=== PATIENT | female | born 1980 | race Caucasian/White ===

== ENCOUNTER 2017-07-01 15:19 | Emergency (ER) | payer OTHER ==
[2017-07-01] MEDS ORDERED: SODIUM CHLORIDE 0.9% 1,000 ML IV STA (16:02)
--- NOTE | 2017-07-01 16:27 | ED ---
General Adult HPI - General Chief complaint: Vaginal Bleeding Stated complaint: Vaginal Bleeding/Dizziness Time Seen by Provider: 07/01/17 15:54 Source: patient Mode of arrival: wheelchair Limitations: no limitations - History of Present Illness Initial comments: 36-year-old female patient presents to emergency department today for evaluation of heavy vaginal bleeding with passage of large clots. Patient states that she started her period yesterday, which was a few days later, she states last night she woke up covered in blood. Patient states that today she has been using a super tampon, and an overnight pad and has had to change them hourly due to the heavy bleeding. Patient states that when she removed her tampon large clots come out after it. She states that she did have some mild lower abdominal cramping but that has resolved. Patient states that when she gets up to walk she feels lightheaded, as he, and a little short of breath. Patient denies any syncopal events. Patient denies any chest pain, back pain, fever, chills, dysuria, hematuria, urinary frequency, urinary urgency. Patient denies any chance of , she states that her significant other is unable to have children. Patient states that over the last year her periods have been regular but heavier than usual. This episode is the worst it has been. Patient did phone her [facility] and was told to come here for evaluation. - Related Data Home Medications Medication Instructions Recorded Confirmed No Known Home Medications [No 07/01/17 07/01/17 Known Home Medications] Allergies Allergy/AdvReac Type Severity Reaction Status Date / Time No Known Allergies Allergy Verified 07/01/17 16:16 Review of Systems ROS Statement: Those systems with pertinent positive or pertinent negative responses have been documented in the HPI. ROS Other: All systems not noted in ROS Statement are negative. Past Medical History Past Medical History: No Reported History History of Any Multi-Drug Resistant Organisms: None Reported Past Surgical History: Section Past Psychological History: Anxiety Smoking Status: Never smoker Past Alcohol Use History: None Reported Past Drug Use History: None Reported General Exam Limitations: no limitations General appearance: alert, in no apparent distress Head exam: Present: atraumatic, normocephalic, normal inspection Eye exam: Present: normal appearance, PERRL, EOMI. Absent: scleral icterus, conjunctival injection, periorbital swelling ENT exam: Present: normal exam, normal oropharynx, mucous membranes moist Neck exam: Present: normal inspection. Absent: tenderness, meningismus, lymphadenopathy Respiratory exam: Present: normal lung sounds bilaterally. Absent: respiratory distress, wheezes, rales, rhonchi, stridor Cardiovascular Exam: Present: regular rate, normal rhythm, normal heart sounds. Absent: systolic murmur, diastolic murmur, rubs, gallop, clicks GI/Abdominal exam: Present: soft, normal bowel sounds. Absent: distended, tenderness, guarding, rebound, rigid External exam: Present: normal external exam Speculum exam: Present: vaginal bleeding, other (Moderate vaginal bleeding noted , dark red blood pooling in the vaginal vault, small blood clots noted. Cervical os closed.) By manual exam: Present: normal by manual exam Back exam: Present: normal inspection Neurological exam: Present: alert, oriented X3, CN II-XII intact Psychiatric exam: Present: normal affect, normal mood Skin exam: Present: warm, dry, intact, normal color. Absent: rash Course Vital Signs 07/01/17 07/01/17 15:29 17:25 Temperature 99.4 F 99 F Pulse Rate 114 H 86 Respiratory 18 16 Rate Blood Pressure 110/82 125/62 O2 Sat by Pulse 99 98 Oximetry - Reevaluation(s) Reevaluation #1: 07/01/17 17:15 Patient states she is feeling somewhat better. States she just feels tired at this time. Exam performed and documented. IV fluid bolus infusing. Awaiting results of ultrasound. Medical Decision Making - Medical Decision Making 36 year-old female patient presented to emergency department today for evaluation of heavy vaginal bleeding. Lab work was obtained and did show a mildly decreased hemoglobin. Also transvaginal ultrasound was obtained and did show multiple uterine fibroids. Pelvic exam was performed, other than some dark red blood in the vaginal vault exam was normal. Patient's was tachycardic initially, was given a 1 L fluid bolus, repeat vital signs are within normal limits. It is felt at this time that heavy bleeding is related to the uterine fibroids and patient has been instructed to follow-up with Dr. Cat her OB/ LEAD MACHINIST within the next 1-2 days for recheck. Patient also instructed to return to the emergency department immediately if her symptoms or the bleeding worsens. Return parameters discussed in detail. Patient verbalizes understanding and agrees to this plan. - Lab Data Result diagrams: 07/01/17 16:00 07/01/17 16:00 Lab Results 07/01/17 07/01/17 07/01/17 Range/Units 16:00 16:00 16:00 WBC 5.9 (3.8-10.6) k/uL RBC 4.11 (3.80-5.40) m/uL Hgb 10.6 L (11.4-16.0) gm/dL Hct 32.7 L (34.0-46.0) % MCV 79.4 L (80.0-100.0) fL MCH 25.7 (25.0-35.0) pg MCHC 32.4 (31.0-37.0) g/dL RDW 15.8 H (11.5-15.5) % Plt Count 150 (150-450) k/uL Neutrophils % 70 % Lymphocytes % 21 % Monocytes % 7 % Eosinophils % 1 % Basophils % 0 % Neutrophils # 4.1 (1.3-7.7) k/uL Lymphocytes # 1.3 (1.0-4.8) k/uL Monocytes # 0.4 (0-1.0) k/uL Eosinophils # 0.1 (0-0.7) k/uL Basophils # 0.0 (0-0.2) k/uL Hypochromasia Slight PT (9.0-12.0) sec INR (<1.2) APTT (22.0-30.0) sec Sodium 140 (137-145) mmol/L Potassium 4.0 (3.5-5.1) mmol/L Chloride 106 (98-107) mmol/L Carbon Dioxide 24 (22-30) mmol/L Anion Gap 10 mmol/L BUN 12 (7-17) mg/dL Creatinine 0.83 (0.52-1.04) mg/dL Est GFR (MDRD) Af Amer >60 (>60 ml/min/1.73 sqM) Est GFR (MDRD) Non-Af >60 (>60 ml/min/1.73 sqM) Glucose 99 (74-99) mg/dL Calcium 9.7 (8.4-10.2) mg/dL Total Bilirubin 0.4 (0.2-1.3) mg/dL AST 139 H (14-36) U/L ALT 197 H (9-52) U/L Alkaline Phosphatase 52 (38-126) U/L Total Protein 7.7 (6.3-8.2) g/dL Albumin 4.4 (3.5-5.0) g/dL Urine Color Urine Appearance (Clear) Urine pH (5.0-8.0) Ur Specific [place] (1.001-1.035) Urine Protein (Negative) Urine Glucose (UA) (Negative) Urine Ketones (Negative) Urine Blood (Negative) Urine Nitrite (Negative) Urine Bilirubin (Negative) Urine Urobilinogen (<2.0) mg/dL Ur Leukocyte Esterase (Negative) Urine RBC (0-5) /hpf Urine Bacteria (None) /hpf Urine Mucus (None) /hpf Urine HCG, Qual Not Detected (Not Detectd) 07/01/17 07/01/17 Range/Units 16:00 16:00 WBC (3.8-10.6) k/uL RBC (3.80-5.40) m/uL Hgb (11.4-16.0) gm/dL Hct (34.0-46.0) % MCV (80.0-100.0) fL MCH (25.0-35.0) pg MCHC (31.0-37.0) g/dL RDW (11.5-15.5) % Plt Count (150-450) k/uL Neutrophils % % Lymphocytes % % Monocytes % % Eosinophils % % Basophils % % Neutrophils # (1.3-7.7) k/uL Lymphocytes # (1.0-4.8) k/uL Monocytes # (0-1.0) k/uL Eosinophils # (0-0.7) k/uL Basophils # (0-0.2) k/uL Hypochromasia PT 10.3 (9.0-12.0) sec INR 1.0 (<1.2) APTT 21.8 L (22.0-30.0) sec Sodium (137-145) mmol/L Potassium (3.5-5.1) mmol/L Chloride (98-107) mmol/L Carbon Dioxide (22-30) mmol/L Anion Gap mmol/L BUN (7-17) mg/dL Creatinine (0.52-1.04) mg/dL Est GFR (MDRD) Af Amer (>60 ml/min/1.73 sqM) Est GFR (MDRD) Non-Af (>60 ml/min/1.73 sqM) Glucose (74-99) mg/dL Calcium (8.4-10.2) mg/dL Total Bilirubin (0.2-1.3) mg/dL AST (14-36) U/L ALT (9-52) U/L Alkaline Phosphatase (38-126) U/L Total Protein (6.3-8.2) g/dL Albumin (3.5-5.0) g/dL Urine Color Light Red Urine Appearance Clear (Clear) Urine pH 5.5 (5.0-8.0) Ur Specific [place] 1.022 (1.001-1.035) Urine Protein 1+ H (Negative) Urine Glucose (UA) Negative (Negative) Urine Ketones Trace H (Negative) Urine Blood Large H (Negative) Urine Nitrite Negative (Negative) Urine Bilirubin Negative (Negative) Urine Urobilinogen <2.0 (<2.0) mg/dL Ur Leukocyte Esterase Negative (Negative) Urine RBC >182 H (0-5) /hpf Urine Bacteria Rare H (None) /hpf Urine Mucus Occasional H (None) /hpf Urine HCG, Qual (Not Detectd) - Radiology Data Radiology results: report reviewed, image reviewed Transvaginal ultrasound impression reveals multiple fibroids largest measuring 2.1 x 1.6 x 2.[address] Houser reveals right ovary is not identified due to overlying bowel gas. No adnexal mass or free fluid. Uterine fibroids. No evidence of ovarian torsion. Disposition Clinical Impression: Abnormal uterine bleeding, Uterine fibroid Disposition: HOME SELF-CARE Condition: Stable Instructions: Dysfunctional Uterine Bleeding (ED), Uterine Fibroids (ED) Additional Instructions: Follow-up with [facility] in one to 2 days for recheck. Return for any new, worsening, or concerning symptoms. Referrals: None,Stated [Primary Care Provider] - 1-2 days Medardo Cat DO [Doctor of Osteopathic Medicine] - 1-2 days Time of Disposition: 17:56
[2017-07-01 16:28] LABS: Basophils % (A) 0 %; CH 24.9; CHCM 31.5; Eosinophils # (A) 0.1 k/uL (0-0.7); Eosinophils % (A) 1 %; HCT 32.7 % (34.0-46.0); HDW 2.91; HGB 10.6 gm/dL (11.4-16.0); Hypochromasia Slight; Luc # (Auto) 0.08; Luc % (Auto) 1; Lymphocytes # (A) 1.3 k/uL (1.0-4.8); Lymphocytes % (A) 21 %; MCH 25.7 pg (25.0-35.0); MCHC 32.4 g/dL (31.0-37.0); MCV 79.4 fL (80.0-100.0); Mean Platelet Volume 7.9; Monocytes # (A) 0.4 k/uL (0-1.0); Monocytes % (A) 7 %; Neutrophils # (A) 4.1 k/uL (1.3-7.7); Neutrophils % (A) 70 %; RBC 4.11 m/uL (3.80-5.40); RDW 15.8 % (11.5-15.5); WBC 5.9 k/uL (3.8-10.6); WBC (Perox) 6.06
[2017-07-01 16:36] LABS: Appearance,Urine Clear (Clear); Bacteria,Urine Rare /hpf; Bilirubin,Urine Negative (Negative); Glucose,Urine (UA) Negative (Negative); Ketones,Urine Trace (Negative); Leukocyte Esterase,Urine Negative (Negative); Mucus,Urine Occasional /hpf; Nitrite,Urine Negative (Negative); PH, Urine 5.5 (5.0-8.0); Particle Count 7998; Protein,Urine 1+ (Negative); RBC,Urine >182 /hpf (0-5); Specific Gravity,Urine 1.022 (1.001-1.035); UA Billing (MACRO vs. MICRO) MICRO; Urobilinogen,Urine <2.0 mg/dL (<2.0)
[2017-07-01 16:40] LABS: ALT 197 U/L (9-52); AST 139 U/L (14-36); Alkaline Phosphatase 52 U/L (38-126); Anion Gap 10 mmol/L; Blood Urea Nitrogen 12 mg/dL (7-17); Calcium 9.7 mg/dL (8.4-10.2); Carbon Dioxide 24 mmol/L (22-30); Chloride 106 mmol/L (98-107); Glucose 99 mg/dL (74-99); Non-African American GFR(MDRD) >60 (>60 ml/min/1.73 sqM); Sodium 140 mmol/L (137-145); Total Bilirubin 0.4 mg/dL (0.2-1.3); Total Protein 7.7 g/dL (6.3-8.2)
[2017-07-01 16:42] LABS: Partial Thromboplastin Time 21.8 sec (22.0-30.0); Prothrombin Time 10.3 sec (9.0-12.0)
--- NOTE | 2017-07-01 17:11 | US ---
EXAMINATION TYPE: US transvaginal DATE OF EXAM: 07/01/2017 COMPARISON: NONE CLINICAL HISTORY: Heavy Vaginal Bleeding. TECHNIQUE: Transvaginal (TV) Date of LMP: 06/30/2017 EXAM MEASUREMENTS: Uterus: 9.1 x 4.5 x 2.4 cm Endometrial Stripe: 0.82 cm Left Ovary: 3.3 x 1.7 x 2.6 cm 1. Uterus: Anteverted 2. Endometrium: wnl 3. Right Ovary: Obscured by overlying bowel gas 4. Left Ovary: wnl Spectral, color and waveform doppler imaging shows good arterial and venous flow within the left ov aron; there is no evidence for ovarian torsion. 5. Bilateral Adnexa: wnl 6. Posterior cul-de-sac: wnl Multiple fibroids visualized largest measuring 2.1 x 1.6 x 2.4 cm. IMPRESSION: Right ovary is not identified. No adnexal mass or free fluid. Uterine fibroids. No eviden ce of ovarian torsion.
[2017-07-01 17:26] VITALS: BP 125/62; PULSE 86; RESP 16; TEMP 99
== END 2017-07-01 18:06 | disposition home or self-care (01) ==
LOC: EC 15:19
DX: N93.9 Abnormal uterine and vaginal bleeding, unspecified (principal); D25.9 Leiomyoma of uterus, unspecified; R42 Dizziness and giddiness
CPT/HCPCS: 36415; 76830; 80053; 81001; 81025; 85025; 85610; 85730; 93976; 96360; 96361; 99284

== ENCOUNTER → 2018-07-13 | Outpatient (CLI) | payer OTHER ==
--- NOTE | 2018-07-13 15:20 | US ---
EXAMINATION TYPE: US pelvis complete transvag DATE OF EXAM: 07/13/2018 COMPARISON: US 07/01/2017 CLINICAL HISTORY: N92.1 Menorrhagia with irregular cycle. Long, heavy cycles TECHNIQUE: . Transabdominal sonographic images of the pelvis were acquired. Transvaginal sonographi c images were medically necessary to better assess the following anatomy: Uterus and ovaries Date of LMP: About 1 month ago, cycle still occurring EXAM MEASUREMENTS: Uterus: 10.5 x 4.6 x 5.4 cm Endometrial Stripe: 0.6 cm Right Ovary: 3.5 x 1.9 x 1.7 cm Left Ovary: 2.3 x 1.5 x 2.5 cm 1. Uterus: Anteverted Heterogeneous and bulky. Multiple probable fibroids visualized. Possible ped unculated fibroid visualized near uterine fundus measuring 2.7 x 2.1 x 2.0 cm. Heterogeneous area vis ualized in the lower uterine segment measuring 3.7 x 1.9 x 2.2 cm- possible fibroid vs other 2. Endometrium: wnl 3. Right Ovary: Cystic area visualized measuring 2.2 x 1.5 x 1.6 cm. Small amount of free fluid vis ualized adjacent to the ovary 4. Left Ovary: wnl 5. Bilateral Adnexa: wnl 6. Posterior cul-de-sac: wnl IMPRESSION: 1. Heterogenous vascular region within the lower uterine segment approaching the internal cervical os concerning for endometrial polyp or mass. Direct visualization is recommended. 2. Redemonstration of multiple uterine leiomyomas, the largest measuring 2.7 cm demonstrating interva l growth from the prior exam of 07/01/2017. 3. Dominant right ovarian follicle is likely physiologic and measures up to 2.2 cm.
[2018-07-13 15:36] LABS: HCT 29.6 % (34.0-46.0); HGB 9.5 gm/dL (11.4-16.0); Hypochromasia Slight; MCV 87.6 fL (80.0-100.0); Mean Platelet Volume 7.8; Platelet Count 169 k/uL (150-450); RBC 3.38 m/uL (3.80-5.40); RDW 15.1 % (11.5-15.5); WBC 6.8 k/uL (3.8-10.6)
[2018-07-13 16:04] LABS: T4, Free (Free Thyroxine) 0.92 ng/dL (0.78-2.19)
== END | disposition home or self-care (01) ==
LOC: RADUSWWP 14:24
PROVIDERS: ATTEND Obstetrics & Gynecology
DX: D25.9 Leiomyoma of uterus, unspecified (principal); N93.8 Other specified abnormal uterine and vaginal bleeding
CPT/HCPCS: 36415; 76830; 76856; 82670; 83001; 83002; 84146; 84439; 84443; 84479; 85027

== ENCOUNTER → 2018-07-25 | Outpatient (CLI) | payer OTHER ==
[2018-07-25 11:22] LABS: HCT 32.5 % (34.0-46.0); HGB 10.3 gm/dL (11.4-16.0); Hypochromasia Moderate; MCH 28.7 pg (25.0-35.0); MCHC 31.7 g/dL (31.0-37.0); MCV 90.7 fL (80.0-100.0); Mean Platelet Volume 6.9; Platelet Count 163 k/uL (150-450); Poikilocytosis Slight; RBC 3.58 m/uL (3.80-5.40); RDW 15.4 % (11.5-15.5); WBC 7.2 k/uL (3.8-10.6)
== END | disposition home or self-care (01) ==
LOC: LABWHC1 11:03
PROVIDERS: ATTEND Orthopaedic Surgery
DX: N93.8 Other specified abnormal uterine and vaginal bleeding (principal)
CPT/HCPCS: 36415; 85027

== ENCOUNTER → 2021-11-13 | Outpatient (CLI) | payer BC, OTHER ==
--- NOTE | 2021-11-14 14:10 | MM ---
Reason for exam: screening (asymptomatic). Baseline mammogram. History: Took hormonal contraceptives beginning at age 15. Physical Findings: Nurse did not find any significant physical abnormalities on exam. MG 3D Screening Mammo W/Cad Bilateral CC and MLO view(s) were taken. There are scattered fibroglandular densities. No significant changes when compared with prior studies. ASSESSMENT: Benign, BI-RAD 2 RECOMMENDATION: Routine screening mammogram of both breasts in 1 year.
== END | disposition home or self-care (01) ==
LOC: RADMAMWWP 14:01
PROVIDERS: ATTEND Obstetrics & Gynecology
DX: Z12.31 Encounter for screening mammogram for malignant neoplasm of breast (principal)
CPT/HCPCS: 77063; 77067

== ENCOUNTER → 2023-03-07 | Outpatient (CLI) | payer BC, OTHER ==
--- NOTE | 2023-03-07 22:18 | MR ---
EXAMINATION TYPE: MR shoulder LT wo con DATE OF EXAM: 03/07/2023 7:48 PM COMPARISON: NONE HISTORY: Left shoulder pain for 4 weeks. TECHNIQUE: Multiplanar multispin echo imaging of the left shoulder was performed. FINDINGS: Rotator cuff : There is heterogeneity of the supraspinatus tendon near the humeral insertion with the foci of increased signal felt to reflect small intrasubstance partial tears superimposed on tendinop athy. No evidence for full-thickness tear. The remaining Constituents of the rotator cuff are intact. Bursa: No bursal effusion or thickening is seen. Musculature: There is no muscular tear, contusion, or atrophy. Acromioclavicular joint : There are mild degenerative changes of the acromioclavicular joint. There i s lateral downsloping of the acromion resulting in mild impingement. Osseous structures : There are no fractures or regions of abnormal bone marrow signal intensity. Long biceps tendon : The biceps tendon is normally situated within the bicipital groove. No complete or partial biceps tendon tear is present. Glenohumeral Joint fluid : There is no glenohumeral joint effusion. Cartilage and Bone : No focal hyaline cartilage defects are noted. No Hill-Sachs, reverse Hill-Sachs, or bony Bankart lesions are seen. Labrum : There are no SLAP or soft tissue Bankart lesions. No paralabral cysts are seen. OTHER FINDINGS : none IMPRESSION: 1. There is heterogeneity of the supraspinatus tendon near the humeral insertion with the foci of inc reased signal felt to reflect small intrasubstance partial tears superimposed on tendinopathy.
== END | disposition home or self-care (01) ==
LOC: RADMRIMAIN 19:08
PROVIDERS: ATTEND Orthopaedic Surgery
DX: M75.112 Incomplete rotator cuff tear or rupture of left shoulder, not specified as traumatic (principal); M67.812 Other specified disorders of synovium, left shoulder

== ENCOUNTER → 2023-03-14 | Outpatient (CLI) | payer BC, OTHER ==
[2023-03-14 15:20] LABS: Basophils # (A) 0.02 X 10*3/uL (0.00-0.10); Basophils % (A) 0.4 %; Eosinophils # (A) 0.07 X 10*3/uL (0.04-0.35); Eosinophils % (A) 1.3 %; HCT 41.3 % (37.2-46.3); HGB 13.5 g/dL (12.0-15.0); Immature Grans, Automated 0.4 %; Lymphocytes # (A) 1.39 X 10*3/uL (0.90-5.00); Lymphocytes % (A) 25.8 %; MCH 30.5 pg (27.0-32.0); MCHC 32.7 g/dL (32.0-37.0); MCV 93.4 fL (80.0-97.0); Monocytes # (A) 0.53 X 10*3/uL (0.20-1.00); Monocytes % (A) 9.8 %; NRBC Per 100 WBC 0 /100 WBCS (0.0-0.0); Neutrophils # (A) 3.36 X 10*3/uL (1.80-7.70); Neutrophils % (A) 62.3 %; Platelet Count 136 X 10*3/uL (140-440); RBC 4.42 X 10*6/uL (4.10-5.20); RDW 12.5 % (11.5-14.5); WBC 5.39 X 10*3/uL (4.50-10.00)
[2023-03-14 15:45] LABS: Anion Gap 10.9 mmol/L (10.00-18.00); Carbon Dioxide 23.7 mmol/L (20.0-27.5); Potassium 4.3 mmol/L (3.5-5.5)
== END | disposition home or self-care (01) ==
LOC: LABPAT 10:59
PROVIDERS: ATTEND Orthopaedic Surgery
DX: Z01.812 Encounter for preprocedural laboratory examination (principal); M75.42 Impingement syndrome of left shoulder
CPT/HCPCS: 80051; 85025

== ENCOUNTER 2023-04-10 05:37 | Day surgery (SDC) | payer BC, OTHER ==
[2023-04-08 14:09] VITALS: BMI 37.5
[2023-04-10] MEDS ORDERED: DEXAMETHASONE SOD PHOSPHATE 4 MG/ML 1 ML VIAL IV ONE (06:15)
[2023-04-10] MEDS ORDERED: ONDANSETRON 4 MG/2 ML VIAL IVP ONE (06:15)
[2023-04-10] MEDS ORDERED: HYDROmorphone 0.5 MG/0.5 ML SYRINGE IVP PRN (06:15)
[2023-04-10] MEDS ORDERED: LACTATED RINGERS 1,000 ML IV SCH (06:15)
[2023-04-10] MEDS ORDERED: SCOPOLAMINE 1 MG/72 HR PATCH TRANSDERM ONE (06:36)
[2023-04-10] MEDS ORDERED: LIDOCAINE 1% (10MG/ML) FOR IV START INTRADERMA ONE (06:36)
[2023-04-10] MEDS ORDERED: MIDAZOLAM 2 MG/2 ML VIAL IVP ONE (06:51)
[2023-04-10] MEDS ORDERED: fentaNYL (PF) 50 MCG/ML 2 ML AMP IVP ONE (06:51)
--- NOTE | 2023-04-10 06:51 | HP ---
HISTORY AND PHYSICAL SCHEDULED DATE OF SURGERY: 04/10/2023. HISTORY OF PRESENT ILLNESS: Taty Herrmann is a 42-year-old patient, seen with progressive left shoulder pain. We discussed options for treatment. She elected to proceed with left shoulder arthroscopy. Consent regarding the procedure was obtained. PAST MEDICAL HISTORY: Hyperlipidemia. PAST SURGICAL HISTORY: Ankle surgery, section, and foot surgery. DAILY MEDICATIONS: Crestor. ALLERGIES: None. SOCIAL HISTORY: She denies tobacco use. PHYSICAL EVALUATION OF THE LEFT SHOULDER: Flexion is 150 degrees, abduction is 130 degrees, external rotation is 40 degrees with weakness. Tenderness along the anterolateral acromion and rotator cuff insertion site. Impingement is positive at 90 degrees. Drop-arm sign is positive. Distal neurovascular exam is intact. IMAGING STUDIES: Left shoulder radiographs revealed a type 2 acromion, mild osteoarthritis of the acromioclavicular joint, and cystic changes of the greater tuberosity. A left shoulder MRI revealed a partial rotator cuff tear along with impingement. IMPRESSION: 1. Left shoulder impingement with partial rotator cuff tear. 2. Hyperlipidemia. PLAN: Left shoulder arthroscopy with subacromial decompression, possible arthroscopic rotator cuff repair and debridement. MMODL / IJN: [id number] /
[2023-04-10] MEDS ORDERED: fentaNYL (PF) 50 MCG/ML 2 ML AMP ONE (07:23)
[2023-04-10] MEDS ORDERED: ROPIVACAINE 5 MG/ML 30 ML VIAL ONE (07:23)
[2023-04-10] MEDS ORDERED: SUCCINYLCHOLINE CHLORIDE 200 MG/10 ML VIAL IV ONE (07:23)
[2023-04-10] MEDS ORDERED: LIDOCAINE 2% INJ 20 MG/ML (2 ML VIAL) ONE (07:23)
[2023-04-10] MEDS ORDERED: PROPOFOL 10 MG/ML 20 ML VIAL IV ONE (07:23)
--- NOTE | 2023-04-10 08:37 | P.ANPRN ---
Procedure Note - Anesthesia - Nerve Block Performed Left Interscalene Single Time Out Performed: Yes ([id number]) Date of Procedure: 04/10/23 Procedure Start Time: 06:51 Procedure Stop Time: 06:55 Location of Patient: PreOp Indication: Acute Post-Operative Pain, Requested by Surgeon Specifically requested for management of pain by DrElijah: Frederick Burch Sedation Type: Sedate with meaningful contact maintained Preparation: Sterile Prep Position: Supine (recumbent) Catheter: None Needle Types: Pajunk Needle Gauge: 21 Ultrasound used to visualize needle placement: Yes Ultrasound used to observe medication spread: Yes Injectate: 0.5% Ropivacaine (see comment for volume) (30cc) Blood Aspirated: No Pain Paresthesia on Injection Noted: No Resistance on Injection: Normal Image Stored and Saved: Yes Events: Uneventful and Well Tolerated
--- NOTE | 2023-04-10 08:51 | P.OP ---
Date of Procedure: 04/10/23 Preoperative Diagnosis: Left shoulder impingement Postoperative Diagnosis: 1. Left shoulder rotator cuff tear 2. Left shoulder impingement Procedure(s) Performed: 1. Left shoulder arthroscopic rotator cuff repair 2. Left shoulder arthroscopic subacromial decompression Implants: 1Arthrex 4.75 swivel lock anchor Anesthesia: GETA, regional (Interscalene block) Surgeon: Frederick Burch Estimated Blood Loss (ml): 10 Pathology: none sent Condition: stable Disposition: PACU Indications for Procedure: 42-year-old patient seen with progressive left shoulder pain. After treatment options were discussed, she elected to proceed with arthroscopy. Operative Findings: See description of procedure Description of Procedure: Patient underwent an interscalene block by department of anesthesia. The pat ient was then taken to the operative suite. The patient underwent a general anesthetic by the department of anesthesia. The patient was placed into a lateral position and secured. There was appropriate padding of the bony prominence. Left shoulder was then prepped and draped in normal sterile orthopedic fashion. We placed the extremity in 10 pounds of longitudinal traction. A posterior incision was now made for a posterior working portal site. The trocar and cannula were inserted into the glenohumeral joint. Arthroscopy was initiated. Spinal needle was now inserted anteriorly, to ascertain the anterior working portal site. An incision was now made in that area, a trocar was inserted followed by a probe. The biceps was intact and appeared stable. The labrum was probed and was found to be stable. There was no significant chondromalacia present. At this point instruments removed from the glenohumeral joint. Utilizing the posterior working portal site, the trocar and cannula were inserted into the subacromial space. Arthroscopy initiated. I made an incision 2 fingerbreadths lateral to the acromion. I introduced my trocar followed by my ArthroCare ablator. I now began ablating thick subacromial bursal tissue, which exposed the undersurface of the anterior acromion. There was diminished subacromial space. There was a very prominent anterior acromion. A motorized bur was introduced and a subacromial decompression was performed. I also excised some osteophytes off the inferior aspect of the distal clavicle. The AC joint was visualized and noted to be mildly arthritic. I turned my attention to the rotator cuff tendon. There was some significant partial tearing along the posterior distal supraspinatus. Upon probing the area there was a full- thickness perforation present. I debrided the margins getting down to stable tendon tissue. The tear/defect measured approximately 1.5 cm it was freely mobile over the footprint. I abraded the footprint with a motorized bur. With the assistance of Pardeep ELIZALDE at past 3 everted mattress sutures through good bites of rotator cuff tendon. I punched the hole in the footprint area for insertion of an anchor. All 6 limbs of suture were passed through the eyelet of a Arthrex 4.75 swivel lock anchor. I placed the eyelet into our pre-punch hole. I held in position while Pardeep ELIZALDE tension all 6 limbs of suture and deployed the anchor with good fixation noted. All residual suture limbs were now clipped. We had good compression of the tendon along the entire footprint. Instruments now removed from the portal sites. All portal sites were approximated with nylon suture. Sterile dressings were applied followed by a shoulder sling. Campbell ELIZALDE assisted in all aspects of this case. The patient was awakened, transferred to a bed, and taken to recovery in stable condition.
[2023-04-10 08:54] VITALS: TEMP 97
[2023-04-10] MEDS ORDERED: HYDROcodone/APAP 7.5-325MG 1 EACH TAB PO ONE (10:07)
[2023-04-10] MEDS ORDERED: HYDROcodone/APAP 7.5-325MG 1 EACH TAB ONE (10:07)
[2023-04-10 10:10] VITALS: PULSE 78; RESP 17
[2023-04-10 10:24] VITALS: BP 113/79
== END 2023-04-10 11:19 | disposition home or self-care (01) ==
LOC: OR 05:37
PROVIDERS: ATTEND Orthopaedic Surgery
DX: M75.102 Unspecified rotator cuff tear or rupture of left shoulder, not specified as traumatic (principal); M75.42 Impingement syndrome of left shoulder; G89.18 Other acute postprocedural pain; E78.5 Hyperlipidemia, unspecified; Z98.890 Other specified postprocedural states; Z98.891 History of uterine scar from previous surgery; Z79.899 Other long term (current) drug therapy
CPT/HCPCS: 64415; 81025; 29827; 29826; C1713 ×2; J2250; J0330; J1100; J0690; J2405; J3010; J2795; J2704; J2001

== ENCOUNTER → 2023-12-09 | Outpatient (CLI) | payer BC, OTHER ==
--- NOTE | 2023-12-10 17:15 | MM ---
Reason for Exam: Screening (asymptomatic). Last mammogram was performed 2 year(s) and 1 month(s) ago. Patient History: Menarche at age 13. First Full-Term at age 25. Hormonal Contraceptives, from age 15 until age 33. Risk Values: Yoselin 5 year model risk: 0.8%. NCI Lifetime model risk: 10.8%. Prior Study Comparison: 11/13/2021 Bilateral Screening Mammogram, [facility]. Tissue Density: There are scattered fibroglandular densities. Findings: Analyzed By CAD. Pattern appears symmetrical and stable. No significant interval change is evident No suspicious groups of microcalcifications, spiculated or lobular masses, architectural distortion or other secondary signs of malignancy are mammographically apparent. Overall Assessment: Benign, BI-RAD 2 Management: Screening Mammogram of both breasts in 1 year. A negative mammogram report should not preclude additional follow up of suspicious palpable abnormalities. Patient should continue monthly self breast exam. A clinical breast exam by your physician is recommended on an annual basis and results should be correlated with mammographic findings. Electronically signed and approved by: Allan Retana D.O. Radiologis
== END | disposition home or self-care (01) ==
LOC: RADMAMWWP 11:35
PROVIDERS: ATTEND Obstetrics & Gynecology Obstetrics
DX: Z12.31 Encounter for screening mammogram for malignant neoplasm of breast (principal)
CPT/HCPCS: 77063; 77067

== ENCOUNTER 2024-02-06 10:33 | Emergency (ER) | payer BC, OTHER ==
[2024-02-06 10:39] VITALS: BP 139/87; PULSE 75; RESP 18; TEMP 98.5
--- NOTE | 2024-02-06 11:06 | ED ---
Abdominal Pain HPI - General Chief Complaint: Abdominal Pain Stated Complaint: Abdominal Pain Time Seen by Provider: 02/06/24 10:45 Source: patient, RN notes reviewed Mode of arrival: ambulatory Limitations: no limitations - History of Present Illness Initial Comments: 43-year-old female presents to ED with chief complaint of left lower quadrant and left flank pain. Patient states pain started this morning around 7 AM woke her from sleep. States that the pain is a dull ache that comes and goes and is exacerbated by inspiration. She had a formed bowel movement this morning yet symptoms have persisted. Patient denies hematuria, dysuria, hematochezia, painful urination, pain with bowel movements, dark or tarry stools, and diarrhea. She has a history of kidney stones roughly 10 years ago. Denies history of diverticulitis or diverticulosis. - Related Data Home Medications Medication Instructions Recorded Confirmed Rosuvastatin [Crestor] 10 mg PO DAILY 04/08/23 04/10/23 Previous Rx's Medication Instructions Recorded HYDROcodone/APAP 7.5-325MG [Albers 1 each PO Q6HR PRN #28 tab 04/10/23 7.5] Ondansetron Odt [Zofran Odt] 4 mg PO Q8HR PRN #10 tab 02/06/24 Tamsulosin [Flomax] 0.4 mg PO DAILY #7 cap 02/06/24 Allergies Allergy/AdvReac Type Severity Reaction Status Date / Time No Known Allergies Allergy Verified 04/10/23 06:34 Review of Systems ROS Statement: Those systems with pertinent positive or pertinent negative responses have been documented in the HPI. ROS Other: All systems not noted in ROS Statement are negative. Past Medical History Past Medical History: Hyperlipidemia History of Any Multi-Drug Resistant Organisms: None Reported Past Surgical History: Adenoidectomy, Section, Tonsillectomy, Uterine Ablation Additional Past Surgical History / Comment(s): RT ANKLE RX X 2 Past Anesthesia/Blood Transfusion Reactions: Postoperative Nausea & Vomiting (PONV) Past Psychological History: Anxiety Smoking Status: Former smoker Past Alcohol Use History: Rare Past Drug Use History: None Reported - Past Family History Mother Family Medical History: No Reported History General Exam Limitations: no limitations General appearance: alert, in no apparent distress Head exam: Present: atraumatic, normocephalic, normal inspection Eye exam: Present: normal appearance, PERRL, EOMI. Absent: scleral icterus, conjunctival injection, periorbital swelling ENT exam: Present: normal exam, mucous membranes moist Neck exam: Present: normal inspection. Absent: tenderness, meningismus, ly mphadenopathy Respiratory exam: Present: normal lung sounds bilaterally. Absent: respiratory distress, wheezes, rales, rhonchi, stridor Cardiovascular Exam: Present: regular rate, normal rhythm, normal heart sounds. Absent: systolic murmur, diastolic murmur, rubs, gallop, clicks GI/Abdominal exam: Present: soft, tenderness (LLQ), normal bowel sounds. Absent: distended, guarding, rebound, rigid Extremities exam: Present: normal inspection, full ROM, normal capillary refill. Absent: tenderness, pedal edema, joint swelling, calf tenderness Back exam: Present: normal inspection, full ROM, tenderness (left flank tenderness on palpation, worse with inspiration), CVA tenderness (L), other. Absent: CVA tenderness (R) Neurological exam: Present: alert, oriented X3, CN II-XII intact Psychiatric exam: Present: normal affect, normal mood Skin exam: Present: warm, dry, intact, normal color. Absent: rash Course Vital Signs 02/06/24 10:35 Temperature 98.5 F Pulse Rate 75 Respiratory 18 Rate Blood Pressure 139/87 O2 Sat by Pulse 97 Oximetry Medical Decision Making - Medical Decision Making Was pt. sent in by a medical professional or institution (, PA, OPTICAL ASSISTANT, urgent care, hospital, or halfway...) When possible be specific @ -No Did you speak to anyone other than the patient for history (EMS, parent, family, police, friend...)? What history was obtained from this source @ -No Did you review nursing and triage notes (agree or disagree)? Why? @ -I reviewed and agree with nursing and triage notes Were old charts reviewed (outside hosp., previous admission, EMS record, old EKG, old radiological studies, urgent care reports/EKG's, halfway records)? Report findings @ -No old charts were reviewed Differential Diagnosis (chest pain, altered mental status, abdominal pain women, abdominal pain men, vaginal bleeding, weakness, fever, dyspnea, syncope, headac he, dizziness, GI bleed, back pain, seizure, CVA, palpatations, mental health, musculoskeletal)? @ -Differential Abdominal Pain Women: Appendicitis, Cholecystitis, diverticulosis, ischemic bowel, pancreatitis, hepatitis, UTI, gastroenteritis, AAA, incarcerated hernia, bowel obstruction, constipation, inflammatory bowel, hepatitis, peptic ulcer disease, splenic infarction, perforated viscus, vulvitis, ovarian torsion, PID, kidney stone, placenta abruption, this is not meant to be an all-inclusive list ] EKG interpreted by me (3pts min.). @ -None X-rays interpreted by me (1pt min.). @ -None done CT interpreted by me (1pt min.). @ -CT abdomen pelvis without contrast revealed 3 mm nodule in the proximal left ureter with mild left-sided hydronephrosis. Cirrhosis with hepatosplenomegaly.] U/S interpreted by me (1pt. min.). @ -None done What testing was considered but not performed or refused? (CT, X-rays, U/S, labs)? Why? @ -None What meds were considered but not given or refused? Why? @ -None Did you discuss the management of the patient with other professionals (professionals i.e. , PA, OPTICAL ASSISTANT, lab, RT, psych nurse, social sciences department chair, guidance consultant, teacher, sailing officer, supportive employment case manager)? Give summary @ -No Was smoking cessation discussed for >3mins.? @ -No Was critical care preformed (if so, how long)? @ -No Were there social determinants of health that impacted care today? How? (Homelessness, low income, unemployed, alcoholism, drug addiction, transportation, low edu. Level, literacy, decrease access to med. care, [facility], rehab)? @ -No Was there de-escalation of care discussed even if they declined (Discuss DNR or withdrawal of care, Hospice)? DNR status @ -No What co-morbidities impacted this encounter? (DM, HTN, Smoking, COPD, CAD, Cancer, CVA, ARF, Chemo, Hep., AIDS, mental health diagnosis, sleep apnea, morbid obesity)? @ -None Was patient admitted / discharged? Hospital course, mention meds given and route, prescriptions, significant lab abnormalities, going to OR and other pertinent info. @ -Discharge. 43-year-old female presents to the emergency department with chief complaint of left lower quadrant and left flank pain. CT abdomen pelvis without contrast revealed 3 mm nodule in the proximal left ureter with mild left-sided hydronephrosis. Cirrhosis with hepatosplenomegaly. UA remarkable for blood. Patient's pain has subsided since administration of Toradol. Patient's vitals are stable and is amenable to discharge. Outpatient prescription of Flomax and Zofran to aid in passage of stone. With patient incidental findings of cirrhosis and hepatosplenomegaly. Patient to follow-up outpatient with primary care provider for further evaluation and treatment Undiagnosed new problem with uncertain prognosis? @ -No Drug Therapy requiring intensive monitoring for toxicity (Heparin, Nitro, Insulin, Cardizem)? @ -No Were any procedures done? @ -No Diagnosis/symptom? @ -Nephrolithiasis Acute, or Chronic, or Acute on Chronic? @ -Acute Uncomplicated (without systemic symptoms) or Complicated (systemic symptoms)? @ -Uncomplicated Side effects of treatment? @ -No Exacerbation, Progression, or Severe Exacerbation? @ -No Poses a threat to life or bodily function? How? (Chest pain, [place], [place], pneumonia, PE, COPD, DKA, ARF, appy, cholecystitis, CVA, Diverticulitis, Homicidal, Suicidal, threat to staff... and all critical care pts) @ -No - Lab Data Result diagrams: 02/06/24 11:24 02/06/24 11:24 Lab Results 02/06/24 02/06/24 02/06/24 Range/Units 11:24 11:24 11:24 WBC 7.6 (3.8-10.6) k/uL RBC 4.45 (3.80-5.40) m/uL Hgb 14.1 (11.4-16.0) gm/dL Hct 42.1 (34.0-46.0) % MCV 94.5 (80.0-100.0) fL MCH 31.7 (25.0-35.0) pg MCHC 33.6 (31.0-37.0) g/dL RDW 12.8 (11.5-15.5) % Plt Count 112 L (150-450) k/uL MPV 7.7 Neutrophils % 78 % Lymphocytes % 15 % Monocytes % 4 % Eosinophils % 1 % Basophils % 0 % Neutrophils # 5.9 (1.3-7.7) k/uL Lymphocytes # 1.1 (1.0-4.8) k/uL Monocytes # 0.3 (0-1.0) k/uL Eosinophils # 0.1 (0-0.7) k/uL Basophils # 0.0 (0-0.2) k/uL Sodium 138 (137-145) mmol/L Potassium 4.3 (3.5-5.1) mmol/L Chloride 107 (98-107) mmol/L Carbon Dioxide 22 (22-30) mmol/L Anion Gap 9 mmol/L BUN 11 (7-17) mg/dL Creatinine 0.69 (0.52-1.04) mg/dL Est GFR (CKD-EPI)AfAm >90 (>60 ml/min/1.73 sqM) Est GFR (CKD-EPI)NonAf >90 (>60 ml/min/1.73 sqM) Glucose 105 H (74-99) mg/dL Plasma Lactic Acid Noe 1.1 (0.7-2.0) mmol/L Calcium 9.6 (8.4-10.2) mg/dL Total Bilirubin 0.9 (0.2-1.3) mg/dL AST 103 H (14-36) U/L ALT 105 H (4-34) U/L Alkaline Phosphatase 60 (38-126) U/L Total Protein 8.0 (6.3-8.2) g/dL Albumin 4.7 (3.5-5.0) g/dL Lipase 142 (23-300) U/L Urine Color Urine Appearance (Clear) Urine pH (5.0-8.0) Ur Specific [place] (1.001-1.035) Urine Protein (Negative) Urine Glucose (UA) (Negative) Urine Ketones (Negative) Urine Blood (Negative) Urine Nitrite (Negative) Urine Bilirubin (Negative) Urine Urobilinogen (<2.0) mg/dL Ur Leukocyte Esterase (Negative) Urine RBC (0-5) /hpf Urine WBC (0-5) /hpf Ur Squamous Epith Cells (0-4) /hpf Urine Bacteria (None) /hpf Hyaline Casts (0-2) /lpf Urine Mucus (None) /hpf 02/06/24 Range/Units 11:24 WBC (3.8-10.6) k/uL RBC (3.80-5.40) m/uL Hgb (11.4-16.0) gm/dL Hct (34.0-46.0) % MCV (80.0-100.0) fL MCH (25.0-35.0) pg MCHC (31.0-37.0) g/dL RDW (11.5-15.5) % Plt Count (150-450) k/uL MPV Neutrophils % % Lymphocytes % % Monocytes % % Eosinophils % % Basophils % % Neutrophils # (1.3-7.7) k/uL Lymphocytes # (1.0-4.8) k/uL Monocytes # (0-1.0) k/uL Eosinophils # (0-0.7) k/uL Basophils # (0-0.2) k/uL Sodium (137-145) mmol/L Potassium (3.5-5.1) mmol/L Chloride (98-107) mmol/L Carbon Dioxide (22-30) mmol/L Anion Gap mmol/L BUN (7-17) mg/dL Creatinine (0.52-1.04) mg/dL Est GFR (CKD-EPI)AfAm (>60 ml/min/1.73 sqM) Est GFR (CKD-EPI)NonAf (>60 ml/min/1.73 sqM) Glucose (74-99) mg/dL Plasma Lactic Acid Noe (0.7-2.0) mmol/L Calcium (8.4-10.2) mg/dL Total Bilirubin (0.2-1.3) mg/dL AST (14-36) U/L ALT (4-34) U/L Alkaline Phosphatase (38-126) U/L Total Protein (6.3-8.2) g/dL Albumin (3.5-5.0) g/dL Lipase (23-300) U/L Urine Color Light Yellow Urine Appearance Clear (Clear) Urine pH 6.0 (5.0-8.0) Ur Specific [place] 1.011 (1.001-1.035) Urine Protein Trace H (Negative) Urine Glucose (UA) Negative (Negative) Urine Ketones Negative (Negative) Urine Blood Large H (Negative) Urine Nitrite Negative (Negative) Urine Bilirubin Negative (Negative) Urine Urobilinogen <2.0 (<2.0) mg/dL Ur Leukocyte Esterase Negative (Negative) Urine RBC 133 H (0-5) /hpf Urine WBC 2 (0-5) /hpf Ur Squamous Epith Cells <1 (0-4) /hpf Urine Bacteria Rare H (None) /hpf Hyaline Casts 1 (0-2) /lpf Urine Mucus Rare H (None) /hpf Disposition Clinical Impression: Nephrolithiasis Narrative: Please return to the Emergency Department if symptoms worsen or any other concerns. Discussed with patient follow-up outpatient with primary care provider for further evaluation of incidental finding of cirrhosis and hepa tosplenomegaly. Disposition: HOME SELF-CARE Condition: Good Instructions (If sedation given, give patient instructions): Kidney Stones (ED) Prescriptions: Tamsulosin [Flomax] 0.4 mg PO DAILY #7 cap Ondansetron Odt [Zofran Odt] 4 mg PO Q8HR PRN #10 tab PRN Reason: Nausea Is patient prescribed a controlled substance at d/c from ED?: No Referrals: Luis Eduardo Jurado MD [REFERRING] - 1-2 days
--- NOTE | 2024-02-06 11:43 | CT ---
EXAMINATION: CT ABDOMEN AND PELVIS WITHOUT IV CONTRAST DATE OF EXAMINATION: 02/06/2024. COMPARISON: None available. INDICATION: Left flank pain. PROCEDURE: Axial CT of the abdomen and pelvis was performed with sagittal and coronal reformatted i mages without contrast enhancement. The exam is limited because some types of pathology may not be ad equately demonstrated due to lack of contrast enhancement. CT dose lowering techniques were used, to include: automated exposure control, adjustment for patient size, and/or use of iterative reconstruct ion. FINDINGS: LOWER CHEST : The visualized lung bases are clear. There are no pleural or pericardial effusions. ABDOMEN: Liver and Biliary system: There is a diffuse nodular contour to the liver which is compatible with c irrhosis. No focal liver lesions are seen on this limited noncontrast examination. The liver is enlar ged measuring 22.6 cm in craniocaudal dimension. Adrenal glands: Normal. Kidneys and ureters: There is a 3 mm stone in the proximal left ureter with mild left-sided hydronep hrosis. The right kidney and ureter appear unremarkable. Spleen: The spleen is mildly enlarged measuring 13.2 cm in AP dimension. Pancreas: Normal. Gallbladder: Normal. Lymph nodes, Peritoneum and mesentery: There is no mesenteric or retroperitoneal lymphadenopathy. Gastrointestinal tract: There are no dilated loops of bowel or free intraperitoneal air. . The appe ndix is normal. Aorta/IVC: No aortic aneurysm.. IVC normal. Abdominal wall: Normal. PELVIS: Fluid: There is no free fluid in the pelvis. Lymph Nodes: There is no pelvic or inguinal lymphadenopathy.. Urinary bladder: Normal. BONES: There are no osseous destructive lesions.. ADDITIONAL SIGNIFICANT FINDINGS: None. IMPRESSION: 1. 3 mm nodule in the proximal left ureter with mild left-sided hydronephrosis. 2. Cirrhosis with hepatosplenomegaly. 3. No additional acute findings seen within the abdomen or pelvis.
[2024-02-06 11:46] LABS: Basophils % (A) 0 %; Eosinophils # (A) 0.1 k/uL (0-0.7); Eosinophils % (A) 1 %; HCT 42.1 % (34.0-46.0); HGB 14.1 gm/dL (11.4-16.0); Lymphocytes # (A) 1.1 k/uL (1.0-4.8); Lymphocytes % (A) 15 %; MCH 31.7 pg (25.0-35.0); MCHC 33.6 g/dL (31.0-37.0); MCV 94.5 fL (80.0-100.0); Mean Platelet Volume 7.7; Monocytes # (A) 0.3 k/uL (0-1.0); Monocytes % (A) 4 %; Neutrophils # (A) 5.9 k/uL (1.3-7.7); Neutrophils % (A) 78 %; Platelet Count 112 k/uL (150-450); RBC 4.45 m/uL (3.80-5.40); RDW 12.8 % (11.5-15.5); WBC 7.6 k/uL (3.8-10.6)
[2024-02-06 11:51] LABS: Appearance,Urine Clear (Clear); Bacteria,Urine Rare /hpf; Bilirubin,Urine Negative (Negative); Blood,Urine Large (Negative); Color,Urine Light Yellow; Glucose,Urine (UA) Negative (Negative); Hyaline Casts,Urine 1 /lpf (0-2); Ketones,Urine Negative (Negative); Leukocyte Esterase,Urine Negative (Negative); Mucus,Urine Rare /hpf; Nitrite,Urine Negative (Negative); Protein,Urine Trace (Negative); RBC,Urine 133 /hpf (0-5); Specific Gravity,Urine 1.011 (1.001-1.035); Squamous Epithelial Cell,Urine <1 /hpf (0-4); Urobilinogen,Urine <2.0 mg/dL (<2.0); WBC,Urine 2 /hpf (0-5)
[2024-02-06 11:54] LABS: Potassium 4.3 mmol/L (3.5-5.1)
[2024-02-06 11:55] LABS: ALT 105 U/L (4-34); AST 103 U/L (14-36); African American GFR (CKD) >90 (>60 ml/min/1.73 sqM); Albumin 4.7 g/dL (3.5-5.0); Alkaline Phosphatase 60 U/L (38-126); Anion Gap 9 mmol/L; Blood Urea Nitrogen 11 mg/dL (7-17); Calcium 9.6 mg/dL (8.4-10.2); Carbon Dioxide 22 mmol/L (22-30); Chloride 107 mmol/L (98-107); Glucose 105 mg/dL (74-99); Lipase 142 U/L (23-300); Non-African American GFR(CKD) >90 (>60 ml/min/1.73 sqM); Sodium 138 mmol/L (137-145); Total Bilirubin 0.9 mg/dL (0.2-1.3)
[2024-02-06] MEDS: KETOROLAC 15 MG/ML 1 ML VIAL IM STA (12:30)
[2024-02-06] MEDS: ACET/COD 300 MG/30 MG STARTER PACK 6 TAB BTL PO STA (12:33)
== END 2024-02-06 12:46 | disposition home or self-care (01) ==
LOC: EC 10:33
DX: K74.60 Unspecified cirrhosis of liver (principal); N20.0 Calculus of kidney; E78.5 Hyperlipidemia, unspecified; Z87.891 Personal history of nicotine dependence; Z86.59 Personal history of other mental and behavioral disorders; Z79.899 Other long term (current) drug therapy
CPT/HCPCS: 36415; 80053; 83605; 83690; 85025; 81001; 74176; 99284; 96372; J1885

== ENCOUNTER → 2024-04-06 | Outpatient (CLI) | payer BC, OTHER ==
[2024-04-06 19:11] LABS: Basophils # (A) 0.01 X 10*3/uL (0.00-0.10); Basophils % (A) 0.2 %; Eosinophils # (A) 0.07 X 10*3/uL (0.04-0.35); Eosinophils % (A) 1.3 %; HCT 43.4 % (37.2-46.3); HGB 14.2 g/dL (12.0-15.0); Lymphocytes # (A) 1.56 X 10*3/uL (0.90-5.00); Lymphocytes % (A) 28.1 %; MCH 31.1 pg (27.0-32.0); MCHC 32.7 g/dL (32.0-37.0); MCV 95.2 FL (80.0-97.0); Mean Platelet Volume 11.1 FL (9.5-12.2); Monocytes # (A) 0.43 X 10*3/uL (0.20-1.00); Monocytes % (A) 7.7 %; NRBC Per 100 WBC 0 X 10*3/uL (0.00-0.01); Neutrophils # (A) 3.48 X 10*3/uL (1.80-7.70); Neutrophils % (A) 62.5 %; Platelet Count 140 X 10*3/uL (140-440); RBC 4.56 X 10*6/uL (4.10-5.20); RDW 12.9 % (11.5-14.5); WBC 5.56 X 10*3/uL (4.50-10.00)
[2024-04-06 19:15] LABS: % Iron Saturation 21.76 (12.00-45.00); ALT 57 U/L (8-44); AST 50 U/L (13-35); Albumin 4.8 g/dL (3.8-4.9); Albumin/Globulin Ratio 1.71 Ratio (1.60-3.17); Alkaline Phosphatase 54 U/L (41-126); Blood Urea Nitrogen 9.8 mg/dL (9.0-27.0); Calcium 10.3 mg/dL (8.7-10.3); Carbon Dioxide 22.3 mmol/L (21.6-31.8); Chloride 105 mmol/L (96-109); Globulin 2.8 g/dL (1.6-3.3); Glucose 95 mg/dL (70-110); Iron 74 UG/DL (50-170); Potassium 4.4 mmol/L (3.5-5.5); Sodium 139 mmol/L (135-145); Total Bilirubin 0.6 mg/dL (0.3-1.2); Total Iron Binding Capacity 340 UG/DL (228-460); Total Protein 7.6 g/dL (6.2-8.2)
[2024-04-06 19:59] LABS: Hepatitis B Surface AB- Quant 52.2 mIU/mL
[2024-04-06 22:13] LABS: Hepatitis B Surface Antigen Nonreactive (Nonreactive); Hepatitis C IgG Antibody Nonreactive (Nonreactive)
[2024-04-06 22:38] LABS: Ceruloplasmin 21.3 mg/dL (20.0-60.0)
[2024-04-07 12:57] LABS: Liver/Kidney Microsome Antibod 3.6 UNITS (<=20)
== END | disposition home or self-care (01) ==
LOC: LABWHC1 12:08
PROVIDERS: ATTEND Internal Medicine Gastroenterology
DX: K75.81 Nonalcoholic steatohepatitis (NASH) (principal)
CPT/HCPCS: 36415; 80053; 82103; 82390; 83516; 83540; 83550; 85025; 86038; 86376; 86706; 86803; 87340

== ENCOUNTER → 2024-10-27 | Outpatient (CLI) | payer BC, OTHER ==
[2024-10-27 18:56] LABS: Basophils # (A) 0.02 X 10*3/uL (0.00-0.10); Basophils % (A) 0.2 %; Eosinophils # (A) 0.06 X 10*3/uL (0.04-0.35); Eosinophils % (A) 0.6 %; HCT 43.1 % (37.2-46.3); HGB 14.5 g/dL (12.0-15.0); Lymphocytes # (A) 2.55 X 10*3/uL (0.90-5.00); Lymphocytes % (A) 26.6 %; MCH 31.2 pg (27.0-32.0); MCHC 33.6 g/dL (32.0-37.0); MCV 92.7 FL (80.0-97.0); Mean Platelet Volume 10.6 FL (9.5-12.2); Monocytes # (A) 0.61 X 10*3/uL (0.20-1.00); Monocytes % (A) 6.4 %; NRBC Per 100 WBC 0 X 10*3/uL (0.00-0.01); Neutrophils % (A) 65.8 %; Platelet Count 154 X 10*3/uL (140-440); RBC 4.65 X 10*6/uL (4.10-5.20); RDW 13.1 % (11.5-14.5); WBC 9.58 X 10*3/uL (4.50-10.00)
[2024-10-27 19:14] LABS: BUN/Creat Ratio 16.38 Ratio (12.00-20.00); Blood Urea Nitrogen 13.1 mg/dL (9.0-27.0); Carbon Dioxide 21.9 mmol/L (21.6-31.8); Chloride 106 mmol/L (96-109); Glucose 102 mg/dL (70-110); Potassium 4.1 mmol/L (3.5-5.5); Sodium 138 mmol/L (135-145)
[2024-10-27 19:15] LABS: ALT 14 U/L (8-44); AST 18 U/L (13-35); Alkaline Phosphatase 51 U/L (41-126); Calcium 9.8 mg/dL (8.7-10.3); Total Bilirubin 0.5 mg/dL (0.3-1.2)
== END | disposition home or self-care (01) ==
LOC: LABWHC1 13:57
PROVIDERS: ATTEND Internal Medicine Gastroenterology
DX: K75.81 Nonalcoholic steatohepatitis (NASH) (principal)
CPT/HCPCS: 36415; 80053; 82105; 85025

== ENCOUNTER 2024-11-23 15:34 | Emergency (ER) | payer BC, OTHER ==
[2024-11-23 15:51] VITALS: TEMP 98.6
[2024-11-23 16:08] LABS: Basophils % (A) 0 %; Eosinophils # (A) 0.1 k/uL (0-0.7); Eosinophils % (A) 1 %; HCT 43.8 % (34.0-46.0); HGB 14.2 gm/dL (11.4-16.0); Lymphocytes # (A) 1.2 k/uL (1.0-4.8); Lymphocytes % (A) 11 %; MCH 30.6 pg (25.0-35.0); MCHC 32.5 g/dL (31.0-37.0); MCV 94.3 fL (80.0-100.0); Mean Platelet Volume 7.2; Monocytes # (A) 0.4 k/uL (0-1.0); Monocytes % (A) 4 %; Neutrophils # (A) 9.2 k/uL (1.3-7.7); Neutrophils % (A) 84 %; Platelet Count 133 k/uL (150-450); RBC 4.64 m/uL (3.80-5.40); RDW 12.7 % (11.5-15.5)
[2024-11-23 16:13] LABS: Prothrombin Time 11.4 sec (10.0-12.5)
[2024-11-23 16:21] LABS: ALT 14 U/L (4-34); AST 21 U/L (14-36); African American GFR (CKD) >90 (>60 ml/min/1.73 sqM); Albumin 3.4 g/dL (3.5-5.0); Alkaline Phosphatase 38 U/L (38-126); Anion Gap 6 mmol/L; Blood Urea Nitrogen 14 mg/dL (7-17); Calcium 9.4 mg/dL (8.4-10.2); Carbon Dioxide 20 mmol/L (22-30); Chloride 110 mmol/L (98-107); Glucose 88 mg/dL (74-99); Non-African American GFR(CKD) >90 (>60 ml/min/1.73 sqM); Potassium 4.2 mmol/L (3.5-5.1); Sodium 136 mmol/L (137-145); Total Bilirubin 0.4 mg/dL (0.2-1.3); Total Protein 5.7 g/dL (6.3-8.2)
--- NOTE | 2024-11-23 16:38 | XR ---
EXAMINATION TYPE: XR chest 2V DATE OF EXAM: 11/23/2024 4:34 PM COMPARISON: None. CLINICAL INDICATION: Female, 44 years old with history of pain; [facility] TECHNIQUE: XR chest 2V Frontal and lateral views of the chest. FINDINGS: Lungs/Pleura: There is no evidence of pleural effusion, focal consolidation, or pneumothorax. Pulmonary vascularity: Unremarkable. Heart/mediastinum: Cardiomediastinal silhouette is unremarkable. Musculoskeletal: No acute osseous pathology. Other findings: None IMPRESSION: No acute cardiopulmonary disease/process. [facility], , 11/23/2024 4:36 PM
--- NOTE | 2024-11-23 18:15 | ED ---
Dizziness HPI - General Chief Complaint: Dizziness Stated Complaint: elevated heart rate Time Seen by Provider: 11/23/24 17:30 Source: patient, family, RN notes reviewed Mode of arrival: ambulatory Limitations: no limitations - History of Present Illness Initial Comments: 44-year-old female presenting to the ER with chief complaint of lightheadedness. States she was in the shower approximately 2 hours ago when she began to feel lightheaded, nauseous, bilateral upper extremity and numbness and vibrating. Also reports a dull chest tightness with associated shortness of breath. States this episode lasted about 20 minutes. states symptoms have mostly resolved however continues to experience a very dull chest tightness. Denies any significant past medical history. Does not take any medications. States she donated plasma earlier today. Denies issues from needle site - Related Data Home Medications Medication Instructions Recorded Confirmed Rosuvastatin [Crestor] 10 mg PO DAILY 04/08/23 04/10/23 Previous Rx's Medication Instructions Recorded HYDROcodone/APAP 7.5-325MG [[place] 1 each PO Q6HR PRN #28 tab 04/10/23 7.5] Ondansetron Odt [Zofran Odt] 4 mg PO Q8HR PRN #10 tab 02/06/24 Tamsulosin [Flomax] 0.4 mg PO DAILY #7 cap 02/06/24 Allergies Allergy/AdvReac Type Severity Reaction Status Date / Time No Known Allergies Allergy Verified 11/23/24 15:51 Review of Systems ROS Statement: Those systems with pertinent positive or pertinent negative responses have been documented in the HPI. ROS Other: All systems not noted in ROS Statement are negative. Past Medical History Past Medical History: Hyperlipidemia History of Any Multi-Drug Resistant Organisms: None Reported Past Surgical History: Adenoidectomy, Section, Tonsillectomy, Uterine Ablation Additional Past Surgical History / Comment(s): RT ANKLE RX X 2 Past Anesthesia/Blood Transfusion Reactions: Postoperative Nausea & Vomiting (PONV) Past Psychological History: Anxiety Smoking Status: Former smoker Past Alcohol Use History: Rare Past Drug Use History: None Reported - Past Family History Mother Family Medical History: No Reported History General Exam Limitations: no limitations General appearance: alert, in no apparent distress Head exam: Present: atraumatic, normocephalic, normal inspection Eye exam: Present: normal appearance, PERRL, EOMI. Absent: scleral icterus, conjunctival injection, periorbital swelling Respiratory exam: Present: normal lung sounds bilaterally. Absent: respiratory distress, wheezes, rales, rhonchi, stridor Cardiovascular Exam: Present: regular rate, normal rhythm, normal heart sounds. Absent: systolic murmur, diastolic murmur, rubs, gallop, clicks GI/Abdominal exam: Present: soft, normal bowel sounds. Absent: distended, tenderness, guarding, rebound, rigid Neurological exam: Present: alert, oriented X3, CN II-XII intact Psychiatric exam: Present: normal affect, normal mood Skin exam: Present: warm, dry, intact, normal color. 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 Ventricular rate 100 bpm, AK interval 123, QRS duration 101, QT/QTc 345/402) Medical Decision Making - Medical Decision Making Was pt. sent in by a medical professional or institution (, PA, MOTO MIX OPERATOR, urgent care, hospital, or [facility]...) When possible be specific @ -No Did you speak to anyone other than the patient for history (EMS, parent, family, police, friend...)? What history was obtained from this source @ -No Did you review nursing and triage notes (agree or disagree)? Why? @ -I reviewed and agree with nursing and triage notes Were old charts reviewed (outside hosp., previous admission, EMS record, old EKG, old radiological studies, urgent care reports/EKG's, [facility] records)? Report findings @ -No old charts were reviewed Differential Diagnosis (chest pain, altered mental status, abdominal pain women, abdominal pain men, vaginal bleeding, weakness, fever, dyspnea, syncope, headache, dizziness, GI bleed, back pain, seizure, CVA, palpatations, mental health, musculoskeletal)? @ -Differential Dizziness: Benign paroxysmal positional Vertigo, Meniere's disease, otitis media, acoustic neuroma, vertebrobasilar insufficiency, cerebellar stroke, encephalitis, hypovolemic, arrhythmia, coronary artery syndrome, anemia, this is not meant to be an all-inclusive list EKG interpreted by me (3pts min.). @ -As above X-rays interpreted by me (1pt min.). @ -Chest x-ray reveals no acute process CT interpreted by me (1pt min.). @ -None done U/S interpreted by me (1pt. min.). @ -None done What testing was considered but not performed or refused? (CT, X-rays, U/S, labs)? Why? @ -None What meds were considered but not given or refused? Why? @ -None Did you discuss the management of the patient with other professionals (professionals i.e. DrElijah, PA, MOTO MIX OPERATOR, lab, RT, psych nurse, social media marketing manager, caser in, teacher, international first officer, case management specialist)? Give summary @ -No Was smoking cessation discussed for >3mins.? @ -No Was critical care preformed (if so, how long)? @ -No Were there social determinants of health that impacted care today? How? (Homelessness, low income, unemployed, alcoholism, drug addiction, transportation, low edu. Level, literacy, decrease access to med. care, assisted, rehab)? @ -No Was there de-escalation of care discussed even if they declined (Discuss DNR or withdrawal of care, Hospice)? DNR status @ -No What co-morbidities impacted this encounter? (DM, HTN, Smoking, COPD, CAD, Cancer, CVA, ARF, Chemo, Hep., AIDS, mental health diagnosis, sleep apnea, morbid obesity)? @ -None Was patient admitted / discharged? Hospital course, mention meds given and route, prescriptions, significant lab abnormalities, going to OR and other pertinent info. @ -Discharge. This is a 44-year-old female with no significant past medical history presenting for episode of lightheadedness prior to arrival. Patient is currently asymptomatic. Vital signs are within acceptable limits. EKG reveals sinus tachycardia at [address] changes. Chest x-ray reveals no acute process. Lab work including CBC, CMP, coags, D-dimer, troponin unremarkable. Discussed negative results with patient. There is no sign of emergent etiology causing symptoms. No cardiac risk factors. Appropriate return precautions and follow-up care discussed with patient. Case was discussed with my ED attending Dr. Santillan. Undiagnosed new problem with uncertain prognosis? @ -No Drug Therapy requiring intensive monitoring for toxicity (Heparin, Nitro, Insulin, Cardizem)? @ -No Were any procedures done? @ -No Diagnosis/symptom? @ -Lightheadedness Acute, or Chronic, or Acute on Chronic? @ -Acute Uncomplicated (without systemic symptoms) or Complicated (systemic symptoms)? @ -Uncomplicated Side effects of treatment? @ -No Exacerbation, Progression, or Severe Exacerbation? @ -No Poses a threat to life or bodily function? How? (Chest pain, [place], [place], pneumonia, PE, COPD, DKA, ARF, appy, cholecystitis, CVA, Diverticulitis, Homicidal, Suicidal, threat to staff... and all critical care pts) @ -Not at this time - Lab Data Result diagrams: 11/23/24 15:59 11/23/24 15:59 Lab Results 11/23/24 11/23/24 11/23/24 Range/Units 15:59 15:59 15:59 WBC 11.0 H (3.8-10.6) k/uL RBC 4.64 (3.80-5.40) m/uL Hgb 14.2 (11.4-16.0) gm/dL Hct 43.8 (34.0-46.0) % MCV 94.3 (80.0-100.0) fL MCH 30.6 (25.0-35.0) pg MCHC 32.5 (31.0-37.0) g/dL RDW 12.7 (11.5-15.5) % Plt Count 133 L (150-450) k/uL MPV 7.2 Neutrophils % 84 % Lymphocytes % 11 % Monocytes % 4 % Eosinophils % 1 % Basophils % 0 % Neutrophils # 9.2 H (1.3-7.7) k/uL Lymphocytes # 1.2 (1.0-4.8) k/uL Monocytes # 0.4 (0-1.0) k/uL Eosinophils # 0.1 (0-0.7) k/uL Basophils # 0.0 (0-0.2) k/uL PT 11.4 (10.0-12.5) sec INR 1.0 (<1.2) D-Dimer (<0.60) mg/L FEU Sodium 136 L (137-145) mmol/L Potassium 4.2 (3.5-5.1) mmol/L Chloride 110 H (98-107) mmol/L Carbon Dioxide 20 L (22-30) mmol/L Anion Gap 6 mmol/L BUN 14 (7-17) mg/dL Creatinine 0.79 (0.52-1.04) mg/dL Est GFR (CKD-EPI)AfAm >90 (>60 ml/min/1.73 sqM) Est GFR (CKD-EPI)NonAf >90 (>60 ml/min/1.73 sqM) Glucose 88 (74-99) mg/dL Calcium 9.4 (8.4-10.2) mg/dL Total Bilirubin 0.4 (0.2-1.3) mg/dL AST 21 (14-36) U/L ALT 14 (4-34) U/L Alkaline Phosphatase 38 (38-126) U/L Troponin I (0.000-0.034) ng/mL Total Protein 5.7 L (6.3-8.2) g/dL Albumin 3.4 L (3.5-5.0) g/dL 11/23/24 11/23/24 Range/Units 15:59 15:59 WBC (3.8-10.6) k/uL RBC (3.80-5.40) m/uL Hgb (11.4-16.0) gm/dL Hct (34.0-46.0) % MCV (80.0-100.0) fL MCH (25.0-35.0) pg MCHC (31.0-37.0) g/dL RDW (11.5-15.5) % Plt Count (150-450) k/uL MPV Neutrophils % % Lymphocytes % % Monocytes % % Eosinophils % % Basophils % % Neutrophils # (1.3-7.7) k/uL Lymphocytes # (1.0-4.8) k/uL Monocytes # (0-1.0) k/uL Eosinophils # (0-0.7) k/uL Basophils # (0-0.2) k/uL PT (10.0-12.5) sec INR (<1.2) D-Dimer 0.21 (<0.60) mg/L FEU Sodium (137-145) mmol/L Potassium (3.5-5.1) mmol/L Chloride (98-107) mmol/L Carbon Dioxide (22-30) mmol/L Anion Gap mmol/L BUN (7-17) mg/dL Creatinine (0.52-1.04) mg/dL Est GFR (CKD-EPI)AfAm (>60 ml/min/1.73 sqM) Est GFR (CKD-EPI)NonAf (>60 ml/min/1.73 sqM) Glucose (74-99) mg/dL Calcium (8.4-10.2) mg/dL Total Bilirubin (0.2-1.3) mg/dL AST (14-36) U/L ALT (4-34) U/L Alkaline Phosphatase (38-126) U/L Troponin I <0.012 (0.000-0.034) ng/mL Total Protein (6.3-8.2) g/dL Albumin (3.5-5.0) g/dL Disposition Clinical Impression: Lightheadedness Disposition: HOME SELF-CARE Condition: Stable Instructions (If sedation given, give patient instructions): Dizziness (ED) Additional Instructions: Please return to the Emergency Department if symptoms worsen or any other concerns. Is patient prescribed a controlled substance at d/c from ED?: No Referrals: Mary Jurado MD [Primary Care Provider] - 1-2 days Time of Disposition: 19:06
[2024-11-23 19:20] VITALS: BP 97/56; PULSE 80; RESP 18
== END 2024-11-23 19:20 | disposition home or self-care (01) ==
LOC: EC 15:34
DX: R42 Dizziness and giddiness (principal); R00.0 Tachycardia, unspecified; Z87.891 Personal history of nicotine dependence
CPT/HCPCS: 36415; 71046; 80053; 84484; 85025; 85379; 85610; 93005; 99284

== ENCOUNTER → 2024-12-07 | Outpatient (CLI) | payer BC, OTHER ==
--- NOTE | 2024-12-07 12:15 | MM ---
Reason for Exam: Screening (asymptomatic). Last screening mammogram was performed 12 month(s) ago. Patient History: Menarche at age 13. First Full-Term at age 25. Hormonal Contraceptives, from age 15 until age 33. Risk Values: Yoselin 5 year model risk: 0.9%. NCI Lifetime model risk: 10.7%. Prior Study Comparison: 11/13/2021 Bilateral Screening Mammogram, [facility]. 12/09/2023 Bilateral MG 3D screening mammo w/cad, [facility]. Tissue Density: There are scattered areas of fibroglandular density. Findings: Analyzed By CAD. Right breast: There is no suspicious group of microcalcifications or new suspicious mass. Left breast: There is no suspicious group of microcalcifications or new suspicious mass. Overall Assessment: Negative, BI-RAD 1 Management: Screening Mammogram of both breasts in [address] [facility] will attempt to contact patient to return for supplemental views and ultrasound if indicated. Patient should continue monthly self-breast exams. A clinical breast exam by your physician is recommended on an annual basis. This exam should not preclude additional follow-up of suspicious palpable abnormalities. Note on Yoselin scores and lifetime risk: 1. A Yoselin score greater than 3% is considered moderate risk. If this is the case, consider specialist referral to assess eligibility for a risk reducing agent. 2. If overall lifetime risk for the development of breast cancer is 20% or higher, the patient may qualify for future screening with alternating mammogram and breast MRI. [facility], , 12/07/2024 12:10 PM. Electronically signed and approved by: Honorio Almanza DO
== END | disposition home or self-care (01) ==
LOC: RADMAMWWP 11:09
PROVIDERS: ATTEND Obstetrics & Gynecology Obstetrics
DX: Z12.31 Encounter for screening mammogram for malignant neoplasm of breast (principal); R92.323 Mammographic fibroglandular density, bilateral breasts
CPT/HCPCS: 77063; 77067